=== PATIENT | female | born 1985 | race American Indian/Alaskan Native ===

== ENCOUNTER 2021-08-27 15:31 | Emergency (ER) | payer OTHER ==
--- NOTE | 2021-08-28 01:22 | XRay Report ---
CHEST 2 VIEWS INDICATION / CLINICAL INFORMATION: pain. COMPARISON: None available. FINDINGS: SUPPORT DEVICES: None. HEART / MEDIASTINUM: No significant abnormality. LUNGS / PLEURA: No significant pulmonary or pleural abnormality. No pneumothorax. BONES: No significant osseous abnormality. ADDITIONAL FINDINGS: No significant additional findings. IMPRESSION: 1. No active cardiopulmonary disease. Signer Name: Venu Davis II, MD Signed: 08/28/2021 1:18 AM Workstation Name: [id number]
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
[2021-08-28 02:37] VITALS: BP 126/70
== END 2021-08-28 02:47 | disposition home or self-care (01) ==
LOC: ED 15:31
DX: M75.50 Bursitis of unspecified shoulder (principal); M79.10 Myalgia, unspecified site; V89.2XXA Person injured in unspecified motor-vehicle accident, traffic, initial encounter; Y93.89 Activity, other specified; Y92.89 Other specified places as the place of occurrence of the external cause; Y99.8 Other external cause status
CPT/HCPCS: 71046; 99283